=== PATIENT | female | born 1995 | race African-American/Black ===

== ENCOUNTER 2018-09-17 10:06 | Emergency (ER) | payer OTHER ==
[~2018-09-17] VITALS: Ht 170.2 cm; Wt 137.0 kg
[2018-09-17 11:20] VITALS: Ht 170.2 cm; Wt 137.0 kg
[2018-09-17 13:52] VITALS: BP 149/96
== END 2018-09-17 13:52 | disposition home or self-care (01) ==
LOC: ED 10:06
DX: S39.012D Strain of muscle, fascia and tendon of lower back, subsequent encounter (principal); V49.49XD Driver injured in collision with other motor vehicles in traffic accident, subsequent encounter
CPT/HCPCS: J1885

== ENCOUNTER 2018-12-20 21:14 | Emergency (ER) | payer OTHER ==
[~2018-12-20] VITALS: Ht 172.7 cm; Wt 140.6 kg
[2018-12-20 21:21] VITALS: Ht 172.7 cm; Wt 140.6 kg
[2018-12-20 22:11] VITALS: BP 130/75
== END 2018-12-20 22:11 | disposition home or self-care (01) ==
LOC: ED 21:14
DX: N39.0 Urinary tract infection, site not specified (principal); R60.0 Localized edema; B30.9 Viral conjunctivitis, unspecified
CPT/HCPCS: 82962